=== PATIENT | male | born 1975 | race Caucasian/White ===

== ENCOUNTER 2023-12-05 20:32 | Emergency (ER) | payer OTHER ==
[~2023-12-05] VITALS: Ht 188 cm; Wt 101.6 kg
[2023-12-05 23:29] LABS: BASOPHILS # (AUTO) 0.1 K/uL (0.0-0.2); BASOPHILS % (AUTO) 0.8 % (0.0-2.0); EOSINOPHILS % (AUTO) 0.3 % (0.0-6.0); HEMATOCRIT 49 % (39-51); HEMOGLOBIN 16.1 g/dL (13.5-17.5); LYMPHOCYTES # (AUTO) 2.2 K/uL (0.8-4.8); LYMPHOCYTES % (AUTO) 16.2 % (20.0-44.0); MEAN CORPUSCULAR HEMOGLOBIN 32 PG (26.0-33.0); MEAN CORPUSCULAR HGB CONC 33 g/dl (31.0-36.0); MEAN CORPUSCULAR VOLUME 96 fL (80-96); MONOCYTES # (AUTO) 1.6 K/uL (0.1-1.30); MONOCYTES % (AUTO) 12.1 % (2.0-12.0); NEUTROPHILS # (AUTO) 9.5 K/uL (1.8-8.9); NEUTROPHILS % (AUTO) 70.6 % (43.0-81.0); PLATELET COUNT (AUTO) 212 K/uL (150-450); RED BLOOD CELL COUNT(AUTO) 5.05 MIL/uL (4.5-6.0); RED CELL DISTRIBUTION WIDTH 13.7 % (11.5-15.0); WHITE BLOOD COUNT (AUTO) 13.5 K/uL (4.3-11.0)
[2023-12-05] MEDS: ACETAMINOPHEN ES 500 MG TABLET PO ONE (23:30)
[2023-12-05] MEDS ORDERED: VANCOMYCIN 1 GM /D5W 250 ML PB IV ONE (23:30)
[2023-12-05] MEDS ORDERED: ACETAMINOPHEN ES 500 MG TABLET ONE (23:30)
[2023-12-05 23:40] LABS: INR 1.03 (0.91-1.10); PARTIAL THROMBOPLASTIN TIME 30.5 SEC (24.3-34.3); PROTHROMBIN TIME 10.9 SECS (9.2-11.1)
[2023-12-05 23:44] LABS: CALCIUM, SERUM 9.3 mg/dL (8.5-10.1); CARBON DIOXIDE 23 mmol/L (21-32); CHLORIDE 96 mmol/L (98-107); CREATININE 1.9 mg/dL (0.6-1.3); GLUCOSE 251 mg/dL (74-106); POTASSIUM 4.1 mmol/L (3.5-5.1); SODIUM SERUM 133 mmol/L (136-145); UREA NITROGEN, BLOOD 24 mg/dL (7-18)
[2023-12-05] MEDS: VANCOMYCIN 1 GM in IV D5W 250 ML IV ONE (23:48)
[2023-12-05 23:59] LABS: ALANINE AMINOTRANSFERASE 32 U/L (12-78); ALBUMIN 3.5 g/dL (3.4-5.0); ALKALINE PHOSPHATASE 87 U/L (46-116); ASPARTATE AMINOTRANSFERASE 13 U/L (15-37); BILIRUBIN,DIRECT 0.2 mg/dL (0.0-0.2); BILIRUBIN,TOTAL 0.6 mg/dL (0.2-1.0); TOTAL PROTEIN, SERUM 8.6 g/dL (6.4-8.2)
[2023-12-06 00:16] LABS: LACTIC ACID 4.9 mmol/L (0.4-2.0)
[2023-12-06] MEDS: IV NS 0.9% 1,000 ML BAG IV ONE ×2 (00:56)
[2023-12-06 08:23] VITALS: BP 130/97; TEMP 97.5; O2SAT 97
== END 2023-12-06 08:50 | disposition short-term general hospital (02) ==
LOC: ER 20:41
DX: A41.9 Sepsis, unspecified organism (principal); L03.116 Cellulitis of left lower limb; I10 Essential (primary) hypertension; E11.9 Type 2 diabetes mellitus without complications; Z20.822 Contact with and (suspected) exposure to COVID-19
CPT/HCPCS: 99291; 96365; 87426; 73630; 85025; 80048; 87040; 83605 ×2; 80076; 36415 ×2; 85730; 96361; J3370; J7030 ×3; A4223; J7060